=== PATIENT | male | born 1980 | race Caucasian/White ===

== ENCOUNTER 2023-05-21 10:11 | Emergency (ER) | payer OTHER ==
[2023-05-21 10:21] VITALS: BP 114/75
--- NOTE | 2023-05-21 10:43 | ED Physician Documentation ---
PD HPI SYNCOPE - Stated complaint Stated Complaint: LIGHT HEADED/VISION LOSS - Chief complaint Chief Complaint: General - History obtained from History obtained from: Patient - History of Present Illness Witnessed: Witnessed Timing - onset: How many hours ago (1) Duration: Seconds Preceding symptoms: Light headed, Generalized weakness. No: Headache, Chest pain, Palpitations Associated symptoms: Nausea / vomiting. No: Headache, Chest pain, Abdominal pain Contributing factors: No: Recent med change, Decreased PO intake, Noxious stimulae (he was exercising vigourously doing Physical Exercise testing for [facility]. He felt lightheaded with the exercising. He had done pushups and then planks exercises. [place] lightheaded and either near syncope or very brief full syncope. 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, Fluids Similar symptoms before: Has not had sx before Recently seen: Not recently seen Review of Systems Constitutional: denies: Fever, Chills Nose: denies: Rhinorrhea / runny nose, Congestion Throat: denies: Sore throat Respiratory: denies: Cough GI: denies: Abdominal Pain, Nausea, Vomiting, Diarrhea PD PAST MEDICAL HISTORY - Past Medical History Past Medical History: Yes Cardiovascular: None Respiratory: None Neuro: None Endocrine/Autoimmune: None, Other - Allergies Allergies/Adverse Reactions: Allergies Allergy/AdvReac Type Severity Reaction Status Date / Time No Known Drug Allergies Allergy Verified 05/21/23 10:21 - Social History Does the pt smoke?: No Smoking Status: Never smoker PD ED PE NORMAL - Vitals Vital signs reviewed: Yes - General General: Alert and oriented X 3, No acute distress, Well developed/nourished - Neck Neck: Supple, no meningeal sign, No adenopathy - Cardiac Cardiac: RRR, No murmur - Respiratory Respiratory: Clear bilaterally - Abdomen Abdomen: Normal bowel sounds, Soft, Non tender, Non distended - Back Back: No CVA TTP - Derm Derm: Normal color, Warm and dry, No rash - Extremities Extremities: No tenderness to palpate, Normal ROM s pain, No edema, No calf tenderness / cord - Neuro Neuro: Alert and oriented X 3, No motor deficit, No sensory deficit, Normal speech Results - Vitals Vitals: Vital Signs - 24 hr 05/21/23 05/21/23 10:19 11:48 Temperature 36.6 C Heart Rate 82 77 Respiratory 16 20 Rate Blood Pressure 114/75 O2 Saturation 95 96 Oxygen O2 Source Room air - EKG (time done) 11:05 EKG releavant findings:: EKG personally interpreted by author of this note. Relevant findings are: Rate: Rate (enter#) (76) Rhythm: NSR [place]: Normal Intervals: Normal GA QRS: Normal Ischemia: Normal ST segments, ST elevation c/w repol. No: ST elevation c/w ischemia, ST depression Compare to prior EKG: Old EKG unavailable - Labs Labs: Laboratory Tests 05/21/23 05/21/23 11:06 11:06 WBC 9.9 RBC 5.03 Hgb 15.7 Hct 44.6 MCV 88.7 MCH 31.2 H MCHC 35.2 RDW 11.7 L Plt Count 198 MPV 10.7 Neut # (Auto) 7.4 H Lymph # (Auto) 1.6 [place] # (Auto) 0.8 Eos # (Auto) 0.0 Baso # (Auto) 0.0 Absolute Nucleated RBC 0.00 Nucleated RBC % 0.0 Sodium 138 Potassium 4.7 Chloride 104 Carbon Dioxide 28 Anion Gap 6.0 BUN 13 Creatinine 1.1 Estimated GFR (MDRD) 74 L Glucose 111 H Calcium 9.2 Total Bilirubin 0.8 AST 35 ALT 61 H Alkaline Phosphatase 60 Total Protein 7.7 Albumin 4.4 Globulin 3.3 Albumin/Globulin Ratio 1.3 Lipase 32 PD Medical Decision Making - ED course Complexity details: reviewed results (no signs of acute cardiopulmonary cause of the symptoms. ), considered differential (seems likely hydration and glucose related near syncope. [place] some better with fluids/gatorade and candy at the site. Blood sugar good on arrival here to ER. ), d/w patient Departure - Departure Disposition: Home, Self Care Clinical Impression: Near syncope Condition: Stable Record reviewed to determine appropriate education?: Yes Instructions: ED Near Syncope Unkn Follow-Up: SHANTEL Reis [Provider Group] Comments: Your EKG, heart rhythm, oxygenation and blood pressure are good here. Your blood sugar was normal here but could have easily corrected with the fluids and sugar along the way to here. Your basic blood count and chemistry panel look good without any signs of electrolyte abnormalities or anemia. It is unclear the cause of your symptoms. Likely was a transient drop in either blood sugar or blood pressure leading to the near fainting. Stay well-hydrated and regular diet. It would not necessarily anticipate this happening again. Follow-up with your primary care if you have recurring episodes. Otherwise normal activity. Discharge Date/Time: 05/21/23 11:51
[2023-05-21 11:10] LABS: BASOPHILS % (AUTO) 0.2 %; EOSINOPHILS % (AUTO) 0.3 %; HCT - HEMATOCRIT 44.6 % (42.0-52.0); HGB - HEMOGLOBIN 15.7 g/dL (14.0-18.0); LYMPHOCYTES # (AUTO) 1.6 10^3/uL (1.5-3.5); LYMPHOCYTES % (AUTO) 16.4 %; MEAN CORPUSCULAR HEMOGLOBIN 31.2 pg (27.0-31.0); MEAN CORPUSCULAR HGB CONC 35.2 g/dL (32.0-36.0); MEAN CORPUSCULAR VOLUME 88.7 fL (80.0-94.0); MEAN PLATELET VOLUME 10.7 fL (7.4-11.4); MONOCYTES # (AUTO) 0.8 10^3/uL (0.0-1.0); NEUTROPHILS # (AUTO) 7.4 10^3/uL (1.5-6.6); NEUTROPHILS % (AUTO) 74.6 %; PLT - PLATELET COUNT 198 10^3/uL (130-450); RED BLOOD COUNT 5.03 10^6/uL (4.70-6.10); RED CELL DISTRIBUTION WIDTH 11.7 % (12.0-15.0); WHITE BLOOD COUNT 9.9 x10^3/uL (4.8-10.8)
[2023-05-21 11:23] LABS: ALBUMIN 4.4 g/dL (3.2-5.5); ALBUMIN/GLOBULIN RATIO 1.3 (1.0-2.2); BILIRUBIN,TOTAL 0.8 mg/dL (0.2-1.0); CALCIUM 9.2 mg/dL (8.5-10.3); CREATININE 1.1 mg/dL (0.6-1.2); POTASSIUM 4.7 mmol/L (3.5-5.0); TOTAL PROTEIN 7.7 g/dL (6.7-8.2)
== END 2023-05-21 11:51 | disposition home or self-care (01) ==
LOC: ED 10:11
DX: R55 Syncope and collapse (principal)
CPT/HCPCS: 36415; 80053; 83690; 85025; 93005; 99283; 99284